=== PATIENT | female | born 1970 | race Caucasian/White ===

== ENCOUNTER → 2020-06-13 10:20 | Outpatient (BNVA) | payer OTHER, SELFPAY | PROVIDERS: Visit Provider Physician Assistant Medical | DX: S63.615A Unspecified sprain of left ring finger, initial encounter (principal); S63.617A Unspecified sprain of left little finger, initial encounter; S63.502A Unspecified sprain of left wrist, initial encounter; X50.3XXA Overexertion from repetitive movements, initial encounter | CPT/HCPCS: 29125; 73110; 73130; 99203 ==

== ENCOUNTER → 2020-06-20 10:45 | Outpatient (BNVA) | payer OTHER, SELFPAY | PROVIDERS: Visit Provider Physician Assistant Medical | DX: S63.502A Unspecified sprain of left wrist, initial encounter (principal); S63.655A Sprain of metacarpophalangeal joint of left ring finger, initial encounter; S63.657A Sprain of metacarpophalangeal joint of left little finger, initial encounter; X58.XXXA Exposure to other specified factors, initial encounter | CPT/HCPCS: 99213 ==

== ENCOUNTER → 2020-06-25 12:11 | Outpatient (BNVA) | payer OTHER, SELFPAY | PROVIDERS: Visit Provider Physician Assistant Medical | DX: S63.502A Unspecified sprain of left wrist, initial encounter (principal); S63.615A Unspecified sprain of left ring finger, initial encounter; S63.617A Unspecified sprain of left little finger, initial encounter; X58.XXXA Exposure to other specified factors, initial encounter | CPT/HCPCS: 99213 ==

== ENCOUNTER 2020-07-08 09:00 | Outpatient (RCR) | payer OTHER, SELFPAY ==
--- NOTE | 2020-06-24 15:23 | MHC.OT.OEV ---
[address] [phone] F: [phone] Occupational Therapy Evaluation Diagnosis: Left hand/wrist strain Date of Onset: 06/11/20 Attending Provider: Bozena Butler PA-C Prescribed Treatment: Eval and Treat History of Current Condition: Pt was opening a door at work, was unaware that the door was locked and jammed her left hand down. X-ray (-) for fx, was seen in work connection and referred to OT for management of pain in left hand and wrist. 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 painting, cross stiching Outdoor hiking, snowmobiling, motorcycle Living Situation, Family and/or Social Support: Lives with , older kid (18 yo girl) Current Level of Function and Occupation Self Care, Employment, Leisure: Hurts to hold cups, unable to twist off caps, unable to type the way she normally does Sleep: WNL Driving: Using dominant right hand to control car Unable to ride motorcycle Pain Assessment Pain Score: 3 Pain Scale Used: Numeric (0 - 10) Pain Location and Description: Ache in left radial wrist, mild soreness in ulnar wrist initially Tender to palpate radial and ulnar wrist Aggravating Factors: Twisting, gripping Alleviating Factors: Wrist orthosis, tylenol Skin and Soft Tissue Assessment Skin and Soft Tissue: Swelling Comments: Left wrist edema, see below Nerve assessment Ulnar Nerve: WFL Median Nerve: WFL Radial Nerve: WFL Sensory Assessment Comments: Pt reports occasional tingling in Left ring and small fingers Edema Assessment Upper Extremity: Left Impaired Comments: Wrist circ. distal to radial styloid Right 16.4 cm Left 17.0 cm Dexterity Assessment Dexterity: WFL Comments: Special Tests Comments: (-) Finkl[place]in's AROM(PROM) Strength Wrist Flexion: R 64 L 50 Extension: R 68 L 62 Ulnar Deviation: Radial Deviation: Comments: Flexion: Extension: Ulnar Deviation: Radial Deviation: Comments: Thumb Thumb CMC Flexion: Thumb MCP Flexion: Thumb IP Flexion: Radial Abduction: Palmar Abduction: [place] ([place] 0-10): Comments: WNL Digits Index MCP: PIP: DIP: Long MCP: PIP: DIP: Ring MCP: PIP: DIP: Small MCP: PIP: DIP: Comments: WNL Gross Grasp: R 84 lb L 70 lb Lateral Pinch: Two-Point Pinch: Three-Jaw Wolf: Comments: Patient Education Primary Language: Gren[place] Lcpc Required: No Current Knowledge: Understands information with skills for self-management Teaching Method: Demonstration Verbal Education Needs Identified on Evaluation: ADL's Disease Information Equipment Use Exercise Pain Safety How did patient/family demonstrate learning? Patient demonstrates Patient verbalizes Barriers to Learning: None Readiness for Learning: Accepting Who was educated? Patient Comments: Plan of Care Assessment: 50 yo female presents two weeks s/p injury to left hand, initially straining D4-D5 MCP's, but now reporting pain primarily in ulnar and radial wrist. She has slightly decreased strength and range compared to right side, but still within a functional range. She is mostly having difficulty w/ gripping objects, opening containers, using left hand for driving and is unable to ride her motorcycle. She will benefit from cont'd OT for progression of pain managment, strengthening and optimizing functional use of left hand. STG Duration: 2 Short Term Goals: Ind w/ HEP Ind w/ use of ice and heat appropriately Good follow through with joint protection/activity protection LTG Duration: 4 Independent Driver Goals: Pain free at rest <3/10 pain w/ moderate use of left hand for daily activities Left gross grasp 80lb QuickDASH score <40 pts Frequency and Duration: The patient will be seen 2x/wk for 4 weeks Treatment Plan: Therapeutic Exercise Therapeutic Activity Home Exercise Program Splinting Patient Education Edema Control ADL Training MHP Cold Packs Soft Tissue Mobilization Kinesiotaping Electronically Signed By: Elizabeth Ty OTR/L Reviewed/agree with student documentation: N/A Please sign and return to therapist, Thank you for your referral.
--- NOTE | 2020-07-08 09:29 | MHC.OT.DC ---
[address] [phone] F: [phone] Occupational Therapy Discharge Note Provider: Bozena Butler PA-C Diagnosis: Left hand/wrist strain Date of Surgery: Date of Evaluation: 06/24/20 Date of Discharge: Treatments to Date: 4 Cancellations to Date: No Shows to Date: Discharge Status: Achieved Goals Improved Function Independent with HEP Discharge Summary: Pt LEFT WRIST PAIN, WRIST EDEMA, STRENGTH AND FUNCTIONAL USE IMPROVED TO WFL. OCCASSIONAL LOW DISCOMFORT WITH HEAVY LIFTING. GOALS MET. Electronically Signed By: BAHRATI BENITEZ. OT CHT CLT Reviewed/agree with student documentation: N/A Therapist: Please Sign and return to therapist, thank you for your referral.
== END 2020-07-29 10:06 | disposition other institution (70) ==
LOC: HO.OT 09:00
PROVIDERS: Visit Provider Physician Assistant Medical
DX: S63.502D Unspecified sprain of left wrist, subsequent encounter (principal); S63.615D Unspecified sprain of left ring finger, subsequent encounter; S63.617D Unspecified sprain of left little finger, subsequent encounter
CPT/HCPCS: 97033; 97035; 97110; 97165; 97535

== ENCOUNTER → 2020-07-09 09:58 | Outpatient (BNVA) | payer OTHER, SELFPAY | PROVIDERS: Visit Provider Physician Assistant Medical | DX: S63.502A Unspecified sprain of left wrist, initial encounter (principal); S63.615A Unspecified sprain of left ring finger, initial encounter; S63.617A Unspecified sprain of left little finger, initial encounter; X58.XXXA Exposure to other specified factors, initial encounter | CPT/HCPCS: 99213 ==

== ENCOUNTER → 2020-07-30 09:47 | Outpatient (BNVA) | payer OTHER, SELFPAY | PROVIDERS: Visit Provider Physician Assistant Medical | DX: S63.502D Unspecified sprain of left wrist, subsequent encounter (principal); X58.XXXD Exposure to other specified factors, subsequent encounter; M72.0 Palmar fascial fibromatosis [Dupuytren] | CPT/HCPCS: 99213 ==

== ENCOUNTER → 2020-08-01 09:31 | Outpatient (BNVA) | payer OTHER, SELFPAY | PROVIDERS: Visit Provider Orthopaedic Surgery | DX: M65.4 Radial styloid tenosynovitis [de Quervain] (principal) | CPT/HCPCS: 20550; 99202; J1100 ==